=== PATIENT | female | born 1955 | race Caucasian/White ===

== ENCOUNTER → 2016-05-04 | Outpatient (CLI) | payer OTHER ==
[~2016-05-04] MED LIST: BENADRYL25 M2 PO; CALCIUM 500500 M1 PO; CECLOR PULVULE500 MG PO; EPA FISH OIL1000 MG PO; GLUCOSAMINE & C1 CAP PO; MULTIVITAMIN FO1 CAP PO; NORCO 325 MG-7.1 TAB PO; PREDNISONE20 MG PO; Phenergan PO; TYLENOL 325MG325 MG PO; TYSABRI20 MG/ML IV; ULTRAM 50MG TAB50 MG PO; XANAX 0.5MG0.5 MG PO; XARELTO10 MG PO
== END ==
LOC: MC.RAD 09:47
DX: Z12.31 Encounter for screening mammogram for malignant neoplasm of breast (principal); N64.89 Other specified disorders of breast

== ENCOUNTER → 2017-05-07 | Outpatient (CLI) | payer OTHER | LOC: MC.RAD 11:17 | DX: Z12.31 Encounter for screening mammogram for malignant neoplasm of breast (principal); N64.89 Other specified disorders of breast ==

== ENCOUNTER → 2017-05-11 | Outpatient (CLI) | payer OTHER | LOC: MC.RAD 12:56 | DX: R92.8 Other abnormal and inconclusive findings on diagnostic imaging of breast (principal) ==

== ENCOUNTER → 2018-07-08 | Outpatient (CLI) | payer OTHER | LOC: MC.RAD 07-07 16:00 | DX: Z12.31 Encounter for screening mammogram for malignant neoplasm of breast (principal) ==

== ENCOUNTER → 2019-08-11 | Outpatient (CLI) | payer MEDICARE, BC | LOC: MC.RAD 07-13 14:15 | DX: Z12.31 Encounter for screening mammogram for malignant neoplasm of breast (principal) ==

== ENCOUNTER → 2020-08-23 | Outpatient (CLI) | payer MEDICARE, BC ==
[~2020-08-23] MED LIST changes: +AUBAGIO14 MG PO; +CRANBERRY FRUI425 MG PO; +FLORAJEN A20 Billion PO; +MASON NATURAL2000 IU PO; +MYRBETR50MG PO; +VANTIN100 MG PO
== END ==
LOC: COL.RAD 08:15
DX: M54.5 Low back pain (principal); N30.20 Other chronic cystitis without hematuria

== ENCOUNTER 2020-08-26 12:01 | Outpatient (CLI) | payer MEDICARE, BC ==
[~2020-08-26] VITALS: Ht 182.9 cm; Wt 83.0 kg
[2020-08-26] VITALS (8 sets, daily range): BP systolic 135–165; BP diastolic 64–90; PULSE 65–81
[~2020-08-26 12:01] MED LIST changes: -FLORAJEN A20 Billion PO; -VANTIN100 MG PO
[2020-08-26] MEDS ORDERED: VANTIN100 MG PO (12:28)
[2020-08-26] MEDS ORDERED: FLORAJEN A20 Billion PO (12:28)
== END 2020-08-26 16:00 | disposition home or self-care (01) ==
LOC: COL.RAD 12:01
DX: M48.061 Spinal stenosis, lumbar region without neurogenic claudication (principal); M48.08 Spinal stenosis, sacral and sacrococcygeal region

== ENCOUNTER → 2020-08-27 | Outpatient (CLI) | payer MEDICARE, BC ==
[~2020-08-27] MED LIST changes: +FLORAJEN A20 Billion PO; +VANTIN100 MG PO
== END ==
LOC: MC.RAD 13:30
DX: Z12.31 Encounter for screening mammogram for malignant neoplasm of breast (principal)

== ENCOUNTER → 2021-02-27 | Outpatient (CLI) | payer MEDICARE, BC | LOC: COL.RAD 02-12 09:45 | DX: G35 Multiple sclerosis (principal); G31.9 Degenerative disease of nervous system, unspecified | CPT/HCPCS: A9585 ==

== ENCOUNTER → 2023-10-06 | Outpatient (CLI) | payer MEDICARE, BC | LOC: MC.RAD 13:04 | DX: Z12.31 Encounter for screening mammogram for malignant neoplasm of breast (principal) ==